=== PATIENT | male | born 1960 | race Caucasian/White ===

== ENCOUNTER 2024-09-05 11:30 | Day surgery (SDC) | payer OTHER ==
[2024-09-05] VITALS (11 sets, daily range): BP systolic 113–151; BP diastolic 65–90
[~2024-09-05] VITALS: Ht 170.2 cm; Wt 71.1 kg
[~2024-09-05 11:30] MED LIST: CeFAZolin Sodium 2,000 MG in NS 100 ML IV SCH; Lactated Ringer's 1,000 ML IV SCH
[2024-09-05] MEDS ORDERED: CeFAZolin Sodium 2,000 MG VIAL ONE (11:33)
[2024-09-05] MEDS ORDERED: Bupivacaine 0.5% HCl 5 MG/ML 30MLVIAL ONE ×2 (11:40→12:42)
[2024-09-05] MEDS ORDERED: IBUP200 PO (11:43)
[2024-09-05] MEDS ORDERED: propofoL 20 ML IV ONE (12:24)
[2024-09-05] MEDS ORDERED: FentaNYL Citrate 50 MCG/ML 2 ML Injection ONE ×2 (12:24→12:45)
[2024-09-05] MEDS ORDERED: Rocuronium Bromide 10 MG/ML 5ML Injection IV ONE ×2 (12:45→12:46)
[2024-09-05] MEDS ORDERED: Ondansetron HCl 2 MG / ML 2ML Vial ONE (12:46)
[2024-09-05] MEDS ORDERED: Dexamethasone Sod Phos 10 MG/ML 1ML VIAL ONE (12:46)
[2024-09-05] MEDS ORDERED: Glycopyrrolate 0.2 MG/ML 5ML VIAL ONE (12:55)
[2024-09-05] MEDS ORDERED: Sugammadex Sodium 200 MG/2ML SDV (100 MG/ML) ONE (13:42)
[2024-09-05] MEDS ORDERED: Ketorolac Tromethamine 30mg Vial ONE (13:42)
[2024-09-05] MEDS ORDERED: HYDROcodone 5-APAP 325 TAB PO PRN (14:05)
--- NOTE | 2024-09-05 15:34 | NUR ---
DISCHARGE NOTE PT A&OX4, BREATHING RA, TOLERATING PO INTAKE, AT BEDSDIE. PT GLASSES ON. Discharge instructions reviewed with patient. Patient verbalizes understanding. Copy given to patient to take home.VSS, Dressing to procedure site clean, dry, intact with no visible drainage, swelling, erythema or bruising noted. Patient up to Ambulate independently. Gait steady. Discharged via wheelchair to private car for ride home.
== END 2024-09-05 15:35 | disposition home or self-care (01) ==
LOC: ORSCMMR 11:30 → ORD 13:00 → ORSCMMR 13:00
DX: K40.20 Bilateral inguinal hernia, without obstruction or gangrene, not specified as recurrent (principal)
CPT/HCPCS: A9270; C1781; J0690; J1100; J1885; J2405; J2704; J3010; J7120

== ENCOUNTER 2024-12-04 07:17 | Day surgery (SDC) | payer OTHER ==
[~2024-12-04] VITALS: Ht 172.7 cm; Wt 70.1 kg
[~2024-12-04 07:17] MED LIST changes: -CeFAZolin Sodium 2,000 MG in NS 100 ML IV SCH; +IBUP200 PO; -Lactated Ringer's 1,000 ML IV SCH
[2024-12-04] MEDS ORDERED: Lactated Ringer's 1,000 ML IV ONE ×2 (07:42→08:30)
[2024-12-04] MEDS ORDERED: propofoL 40 ML IV ONE (08:30)
[2024-12-04 09:29] VITALS: BP 113/71
== END 2024-12-04 09:36 | disposition home or self-care (01) ==
LOC: ORSCSDS 07:17
PROVIDERS: Surgery
PROC: 0DJD8ZZ Inspection of Lower Intestinal Tract, Via Natural or Artificial Opening Endoscopic (ICD-10-PCS; principal; 2024-12-04 08:45)
DX: Z12.11 Encounter for screening for malignant neoplasm of colon (principal); K57.30 Diverticulosis of large intestine without perforation or abscess without bleeding
CPT/HCPCS: J2704; J7120